=== PATIENT | female | born 1960 | race Caucasian/White ===

== ENCOUNTER 2016-08-06 09:18 | Emergency (ER) | payer BC ==
[2016-08-06] MEDS ORDERED: IBUPROFEN 600 MG TABLET PO ONE (09:33)
--- NOTE | 2016-08-06 09:38 | PDOC ---
Epistaxis / Nasal FB - General Chief Complaint: Nasal/Mouth Problem /Injury Stated Complaint: nose bleed Date Seen by Provider: 08/06/16 Time Seen by Provider: 09:25 Source: POSITIVE: Patient Exam Limitations: POSITIVE: No limitations Nurse's Notes Reviewed & Considered: Yes - History of Present Illness Initial Comments: This pleasant 56-year-old female comes in today with a left nares bleed. This patient was seen initially at her primary care office for nosebleed and was directed here to the emergency department when they were unable to find the source of the bleeding. Albaro is noted to have von Willebrand's disease and is taking aspirin. She is on no other anticoagulants. Her symptoms began earlier this morning when she felt the need to sneeze and both her nose, she had a gush of blood, and has continued to bleed briskly since. Patient denies any fevers chills sweats, headache, nausea vomiting or diarrhea, chest pain, shortness of breath, cough. Timing: REPORTS: Abrupt Severity: Moderate Quality: REPORTS: Itching Context: REPORTS: Rest Modifying Factors: improves with: Nothing Similar Symptoms Previously: No Recent Care Received: REPORTS: Denies Any Prior Injuries Related to Current Complaint?: No - Patient Allergies Allergies/Adverse Reactions: Allergies Allergy/AdvReac Type Severity Reaction Status Date / Time acetaminophen [From Tylenol] Allergy Severe NOT Verified 08/06/16 09:24 APPLICABLE codeine [Codeine] Allergy Severe NOT Verified 08/06/16 09:24 APPLICABLE rofecoxib [From Vioxx] Allergy Severe Anaphylaxis Verified 08/06/16 09:24 - Patient Home Medications Home Medications: Home Medications Multivitamin 1 tab PO DAILY 05/06/11 Loratadine/Pseudoephedrine [Claritin-D 24 Hour Tablet] 1 each PO PRN PRN Aspirin [Aspir 81] 81 mg PO BEDTIME 04/18/15 Estradiol 1 mg PO BEDTIME 04/18/15 Nebivolol HCl [Bystolic] 10 mg PO BEDTIME 04/18/15 Celecoxib [Celebrex] 1 cap PO DAILY cap 04/20/16 Levothyroxine Sodium [Synthroid] 1 tab PO DAILY tab 04/20/16 Losartan/Hydrochlorothiazide [Losartan-Hctz 100-12.5 Mg Tab] 1 tab PO DAILY tab 04/20/16 Past Medical History - heen HEENT History: Denies History Cardiovascular History: Denies History Respiratory History: Denies History Gastrointestinal History: Denies History Genitourinary History: Denies History Endocrine History: Hypothyroidism Musculoskeletal History: Denies History Prosthesis or Implant: No Neurological History: Denies History Blood Disorders: Denies History Psychiatric History: Denies History History of Sexually Transmitted Diseases: No Cancer History: Denies History History of MDRO: No History of Other Communicable Diseases: No Alcohol Use: Occasionally Substance Use Type: None Previous Surgical History: Yes Type / Date of Surgery: NECK SURGERY, ENDOMETRIAL ABLATION, CHOLECYSTECTOMY, TUBAL LIGATION. Anesthesia Reactions: No Malignant Hyperthermia: No Significant Family History: No pertinent family hx ROS - Limitations ROS Limitations: No Limitations Constitution: REPORTS: Denies Symptoms Cardiovascular: REPORTS: Denies Cardiac Symptoms Respiratory: REPORTS: Denies Resp Symptoms Neurological: REPORTS: Denies Neuro Symptoms Gastrointestinal: REPORTS: Denies GI Symptoms Endocrine: REPORTS: Denies Symptoms Musculoskeletal: REPORTS: Denies MS Symptoms Genitourinary: REPORTS: Denies Symptoms Eyes: REPORTS: Denies Symptoms ENT: REPORTS: Nose Bleed (Left naris) Skin: REPORTS: Denies Skin Symptoms Lympathic: REPORTS: Denies Lympathic Symptoms Immunologic: POSITIVE: Denies Symptoms Psychiatric: POSITIVE: Denies Psych Symptoms Nose Complaint Exam - General Appearance General Appearance: POSITIVE: Alert, Cooperative, No Evidence of Trauma, Mild Distress - HEENT Head / Face: POSITIVE: Atraumatic, Normal Inspection, No Facial Swelling Eyes: POSITIVE: Inspection Normal, PERRL, EOM's Intact, Eyelids Uninjured, Conjunctivae Uninjured, No Nystagmus Ears: POSITIVE: Ears Normal Inspection, Auricle Normal Nose: POSITIVE: Nares Normal, Active Bleeding (left naris) Oropharynx: POSITIVE: External Inspection Nml, Pharynx Inspect. Nml (blood is noted in the posterior pharynx.), Airway Intact, Voice Normal, Moist Mucous Membranes, No Oral Injury, Lips Normal, Gums Normal, No Drooling, No Thrush Dental: POSITIVE: No Dental Injury - Neurological / Psychological Neurological: POSITIVE: Affect Apporpriate, Oriented X3, Motor Normal, Sensation Normal - Respiratory Respiratory: POSITIVE: No Respiratory Distress - Skin Skin: POSITIVE: Normal Color, No Skin Rash Nose Complaint Progress - Patient's Progress Re-Examine Time:: 10:12 Status: POSITIVE: Improved MDM / ED Course: Patient was examined, a Rhino Rocket placed in the left naris. She tolerated the Rhino Rocket. Here in the emergency room she did receive a milligram of Ativan, Augmentin, and ibuprofen. She is discharged home with prescription for Ativan and Augmentin, and instructions for ibuprofen. She has instructions to follow-up with the emergency department in 3 days for Rhino Rocket removal. Assessment: Epistaxis. - Consult Counseled: POSITIVE: Patient, Family, RE: DX, RE: Need for F/U Patient Care Time - Estimated PCT Patient Care Time (In Minutes): 20 Vital Signs - Recent Vital Signs Vital Signs: Vital Signs (Last 8 hours) Temp Pulse Resp BP Pulse Ox 08/06/16 09:38 97.2 F 08/06/16 09:18 97.2 F 75 17 143/89 93 - VS Reviewed Vital Signs Reviewed: Yes Discharge Clinical Impression: Epistaxis Discharge Disposition: Discharged to Home Condition: Good Patient Instructions Given at Discharge: Nosebleed (ED)
[2016-08-06 09:39] VITALS: TEMP 97.2
[2016-08-06] MEDS ORDERED: Amoxicill/Clav 875/125mg Tab 1 TAB TAB PO ONE (09:40)
[2016-08-06] MEDS ORDERED: LORazepam 1 MG TABLET PO ONE (09:51)
[2016-08-06 10:08] VITALS: RESP 17
== END 2016-08-06 10:37 | disposition home or self-care (01) ==
LOC: ER 09:18
DX: R04.0 Epistaxis (principal); D68.0 Von Willebrand disease; Z79.82 Long term (current) use of aspirin
CPT/HCPCS: 30901; 99282

== ENCOUNTER 2016-08-08 07:46 | Emergency (ER) | payer BC ==
[2016-08-08 08:06] VITALS: RESP 18; TEMP 97.1
--- NOTE | 2016-08-08 08:12 | PDOC ---
Epistaxis / Nasal FB - General Chief Complaint: Nasal/Mouth Problem /Injury Stated Complaint: REMOVE NASAL PACKING Date Seen by Provider: 08/08/16 Time Seen by Provider: 08:00 Source: POSITIVE: Patient Exam Limitations: POSITIVE: No limitations Nurse's Notes Reviewed & Considered: Yes - History of Present Illness Initial Comments: The patient presents to the emergency department for nasal packing removal. She was seen on August 06 with persistent bleeding from the left nares and a rapid Rhino was placed. She has been taking Augmentin as well as ibuprofen for pain the past couple of days. She denies fever or any further bleeding since going home. - Patient Allergies Allergies/Adverse Reactions: Allergies Allergy/AdvReac Type Severity Reaction Status Date / Time acetaminophen [From Tylenol] Allergy Severe NOT Verified 08/08/16 07:53 APPLICABLE codeine [Codeine] Allergy Severe NOT Verified 08/08/16 07:53 APPLICABLE rofecoxib [From Vioxx] Allergy Severe Anaphylaxis Verified 08/08/16 07:53 - Patient Home Medications Home Medications: Home Medications Multivitamin 1 tab PO DAILY 05/06/11 Loratadine/Pseudoephedrine [Claritin-D 24 Hour Tablet] 1 each PO PRN PRN Aspirin [Aspir 81] 81 mg PO BEDTIME 04/18/15 Estradiol 1 mg PO BEDTIME 04/18/15 Nebivolol HCl [Bystolic] 10 mg PO BEDTIME 04/18/15 Celecoxib [Celebrex] 1 cap PO DAILY cap 04/20/16 Levothyroxine Sodium [Synthroid] 1 tab PO DAILY tab 04/20/16 Losartan/Hydrochlorothiazide [Losartan-Hctz 100-12.5 Mg Tab] 1 tab PO DAILY tab 04/20/16 Amoxicill/Clav 875/125mg [Augmentin 875/125mg] 1 tab PO BID 08/08/16 Past Medical History - heen HEENT History: Denies History Cardiovascular History: Denies History Respiratory History: Denies History Gastrointestinal History: Denies History Genitourinary History: Denies History Endocrine History: Hypothyroidism Musculoskeletal History: Denies History Prosthesis or Implant: No Neurological History: Denies History Blood Disorders: Denies History Psychiatric History: Denies History History of Sexually Transmitted Diseases: No Female Reproductive History: Hysterectomy Cancer History: Denies History In Past Year Been Physically Harmed or Verbally Threatened: No History of MDRO: No History of Other Communicable Diseases: No Tobacco Use: Never Smoker Alcohol Use: Occasionally Substance Use Type: None Previous Surgical History: Yes Type / Date of Surgery: NECK SURGERY, ENDOMETRIAL ABLATION, CHOLECYSTECTOMY, TUBAL LIGATION. Anesthesia Reactions: No Malignant Hyperthermia: No Significant Family History: No pertinent family hx Past Medical History Reviewed: Reviewed - No Changes ROS - Limitations ROS Limitations: No Limitations Constitution: DENIES: Chills, Fever Cardiovascular: REPORTS: Denies Cardiac Symptoms Respiratory: REPORTS: Denies Resp Symptoms Gastrointestinal: REPORTS: Denies GI Symptoms ENT: DENIES: Nasal Drainage Nose Complaint Exam - General Appearance General Appearance: POSITIVE: Alert, Cooperative, No Acute Distress - HEENT Eyes: POSITIVE: Inspection Normal Ears: POSITIVE: Ears Normal Inspection Nose: POSITIVE: Other (packing in place on the left side, no active bleeding) Oropharynx: POSITIVE: Pharynx Inspect. Nml Nose Complaint Progress - Patient's Progress MDM / ED Course: The rapid Rhino was removed. Examination of the nasal mucosa does reveal some mild excoriation to the septum, no active bleeding, she did have a small amount of light in the posterior oropharynx after packing removal with no active bleeding. She was monitored in the emergency room and exhibited no evidence of active bleeding. She was discharged home with instructions to return if she has recurrent bleeding lasting greater than 15-20 minutes after application of direct pressure. She will finish her 2 doses of Augmentin. She is advised follow-up with primary care next week. - Consult Counseled: POSITIVE: Patient, RE: DX, RE: Need for F/U Patient Care Time - Estimated PCT Patient Care Time (In Minutes): 10 Vital Signs - Recent Vital Signs Vital Signs: Vital Signs (Last 8 hours) Temp Pulse Resp BP Pulse Ox 08/08/16 07:56 97.1 F 67 18 143/87 95 - VS Reviewed Vital Signs Reviewed: Yes Discharge Clinical Impression: Epistaxis Discharge Disposition: Discharged to Home Condition: Stable Patient Instructions Given at Discharge: Nosebleed (ED) Additional Instructions: The packing from the left side of your nose was removed. There is still a small amount of irritation visible to the septum on the left side. Recommend no nose blowing for the next 3-5 days. Humidifier. Finish the antibiotic as prescribed. Return to the emergency room if increased nasal pain, fever, bleeding not controlled after 15-20 minutes of direct pressure. Follow-up with primary care in 3-5 days. Follow Up With: AUGUSTINE DODSON [Primary Care Provider] -
== END 2016-08-08 08:55 | disposition home or self-care (01) ==
LOC: ER 07:46
DX: R04.0 Epistaxis (principal); J34.89 Other specified disorders of nose and nasal sinuses
CPT/HCPCS: 99282